=== PATIENT | male | born 1990 | race Caucasian/White ===

== ENCOUNTER 2022-01-06 09:58 | Emergency (ER) | payer BC, OTHER ==
[2022-01-06 10:23] LABS: GLUCOSE, URINE (UA) NEGATIVE (NEGATIVE); KETONES,URINE (UA) >=80 mg/dL (NEGATIVE); LEUKOCYTE ESTERASE, URINE NEGATIVE (NEGATIVE); NITRITE,URINE NEGATIVE (NEGATIVE); OCCULT BLOOD,URINE LARGE (NEGATIVE); PH,URINE 5.5 PH (5.0-7.5); PROTEIN,URINE 30 mg/dL (NEGATIVE); UROBILINOGEN,URINE 1 (NORMAL) E.U./dL (NORMAL)
[2022-01-06 10:27] LABS: BASOPHILS % (AUTO) 0.2 %; EOSINOPHILS % (AUTO) 0.1 %; HCT - HEMATOCRIT 48.5 % (42.0-52.0); LYMPHOCYTES # (AUTO) 0.8 10^3/uL (1.5-3.5); LYMPHOCYTES % (AUTO) 4.9 %; MEAN CORPUSCULAR HEMOGLOBIN 31.7 pg (27.0-31.0); MEAN CORPUSCULAR HGB CONC 35.1 g/dL (32.0-36.0); MEAN CORPUSCULAR VOLUME 90.3 fL (80.0-94.0); MEAN PLATELET VOLUME 10.8 fL (7.4-11.4); MONOCYTES # (AUTO) 0.4 10^3/uL (0.0-1.0); MONOCYTES % (AUTO) 2.3 %; NEUTROPHILS # (AUTO) 14.1 10^3/uL (1.5-6.6); NEUTROPHILS % (AUTO) 92.2 %; PLT - PLATELET COUNT 210 10^3/uL (130-450); RED BLOOD COUNT 5.37 10^6/uL (4.70-6.10); RED CELL DISTRIBUTION WIDTH 11.9 % (12.0-15.0); WHITE BLOOD COUNT 15.3 x10^3/uL (4.8-10.8)
[2022-01-06 10:32] LABS: BILIRUBIN,URINE NEGATIVE (NEGATIVE); CLARITY,URINE HAZY (CLEAR); ICTOTEST,URINE NEGATIVE
[2022-01-06 10:40] LABS: ALBUMIN 5.1 g/dL (3.2-5.5); BILIRUBIN,TOTAL 0.9 mg/dL (0.2-1.0); CALCIUM 9.8 mg/dL (8.5-10.3); CREATININE 1.2 mg/dL (0.6-1.2); POTASSIUM 4.4 mmol/L (3.5-5.0); TOTAL PROTEIN 7.6 g/dL (6.7-8.2)
[2022-01-06 10:41] LABS: BACTERIA,URINE Few /HPF (None Seen); MUCUS,URINE Moderate Strands; SQUAMOUS EPITHELIAL CELL,UR RARE Squamous (<= Few)
--- NOTE | 2022-01-06 12:02 | CT Report ---
PROCEDURE: Abdomen/Pelvis WO INDICATIONS: R flank/LQ abd pain TECHNIQUE: Noncontrast 5 mm thick sections acquired from the diaphragms to the symphysis. 5 mm coronal and sagi ttal reformats were then performed. For radiation dose reduction, the following was used: automated exposure control, adjustment of mA and/or kV according to patient size. COMPARISON: None. FINDINGS: Image quality: Excellent. ABDOMEN: Lung bases: Lung bases are clear. Heart size is normal. Solid organs: Liver is enlarged measuring 18.3 cm with mild steatosis. The spleen is normal in size. Gallbladder is unremarkable Pancreas is normal in contours. No adrenal nodules. Kidneys are norm al in size, without nephrolithiasis. The distal ureter is difficult to visualize in its entirety sec ondary to overlying structures. However, there is a 4 mm calcification, Hounsfield units 400 within t he path of the distal ureter. There is a slight appearance of right hydronephrosis. Peritoneum and bowel: Unenhanced bowel loops demonstrate normal wall thickness and caliber. No free fluid or air. Appendix is normal in size. Nodes and vessels: No retroperitoneal or mesenteric adenopathy by size criteria. Aorta and inferior vena cava are normal in caliber. Miscellaneous: No ventral hernias. PELVIS: Genitourinary: Bladder wall thickness is normal. Miscellaneous: No inguinal hernias or adenopathy. Bones: No suspicious bony lesions. No vertebral body compression fractures. IMPRESSION: Suspected distal right ureteral calculus as described above with slight appearance of right hydroneph rosis. Reviewed by: Rahel Martin MD on 01/06/2022 12:00 PM PDT Approved by: Rahel Martin MD on 01/06/2022 12:00 PM PDT Station ID: [id number]
--- NOTE | 2022-01-06 12:13 | ED Physician Documentation ---
History of Present Illness - Stated complaint Stated Complaint: BACK PAIN - Chief complaint Chief Complaint: Back Pain - History obtained from History obtained from: Patient - Additonal information Additional information: Patient comes to the emergency department from urgent care for chief complaint of right flank pain and lower quadrant pain that started around 6:00 this morning. He states he awakened feeling fine but when he sat down on the toilet the pain suddenly started. He states he was writhing and could not stay still. He felt the pain all the way from his right CVA down into his right testicle. The patient was given some analgesia at the urgent care and told to come here. Patient has no history of kidney stones but does have a strong family history. He still has his appendix. He has not felt sick in any other way. He does admit to vomiting twice when the pain became very intense. No other complaints at this time. He is otherwise healthy. Review of Systems Ten Systems: 10 systems reviewed and negative Constitutional: reports: Reviewed and negative Eyes: reports: Reviewed and negative Ears: reports: Reviewed and negative Nose: reports: Reviewed and negative Throat: reports: Reviewed and negative Cardiac: reports: Reviewed and negative Respiratory: reports: Reviewed and negative GI: reports: Abdominal Pain, Nausea, Vomiting : reports: Reviewed and negative. denies: Dysuria Skin: reports: Reviewed and negative Musculoskeletal: reports: Back pain Neurologic: reports: Reviewed and negative Psychiatric: reports: Reviewed and negative Endocrine: reports: Reviewed and negative Immunocompromised: reports: Reviewed and negative PD PAST MEDICAL HISTORY - Past Medical History Past Medical History: Yes Psych: Depression, Anxiety - Past Surgical History Past Surgical History: No - Present Medications Home Medications: Ambulatory Orders Medication Instructions Recorded Confirmed HYDROcod/ACETAM 5/325 [[place] 5/325] 1 - 2 tablet PO Q6H PRN #14 tablet 01/06/22 Ondansetron Odt [Zofran] 4 mg TL Q6H PRN #10 tablet 01/06/22 buPROPion [Wellbutrin Sr] 100 mg PO BID 01/06/22 01/06/22 - Allergies Allergies/Adverse Reactions: Allergies Allergy/AdvReac Type Severity Reaction Status Date / Time Penicillins Allergy Hives Verified 01/06/22 10:04 - Social History Does the pt smoke?: No Smoking Status: Never smoker PD ED PE NORMAL - Vitals Vital signs reviewed: Yes - General General: Alert and oriented X 3, No acute distress, Well developed/nourished - HEENT HEENT: Atraumatic, PERRL, EOMI, Moist mucous membranes - Neck Neck: Supple, no meningeal sign - Cardiac Cardiac: RRR, No murmur, Strong equal pulses - Respiratory Respiratory: No respiratory distress, Clear bilaterally - Abdomen Abdomen: Soft, Non distended, Other (Mild right lower quadrant tenderness no rebound or guarding) - Back Back: Other (Mild right CVA tenderness) - Derm Derm: Normal color, Warm and dry, No rash - Extremities Extremities: No deformity, No edema - Neuro Neuro: Alert and oriented X 3 - Psych Psych: Normal mood, Normal affect Results - Vitals Vitals: Vital Signs - 24 hr 01/06/22 01/06/22 10:01 11:44 Temperature 36 C L Heart Rate 73 61 Respiratory 18 24 Rate Blood Pressure 123/69 118/66 O2 Saturation 100 98 Oxygen O2 Source Room air - Labs Labs: Laboratory Tests 01/06/22 01/06/22 01/06/22 10:09 10:09 10:15 WBC 15.3 H RBC 5.37 Hgb 17.0 Hct 48.5 MCV 90.3 MCH 31.7 H MCHC 35.1 RDW 11.9 L Plt Count 210 MPV 10.8 Neut # (Auto) 14.1 H Lymph # (Auto) 0.8 L [place] # (Auto) 0.4 Eos # (Auto) 0.0 Baso # (Auto) 0.0 Absolute Nucleated RBC 0.00 Nucleated RBC % 0.0 Sodium 142 Potassium 4.4 Chloride 100 L Carbon Dioxide 29 Anion Gap 13.0 BUN 18 Creatinine 1.2 Estimated GFR (MDRD) 71 L Glucose 142 H Calcium 9.8 Total Bilirubin 0.9 AST 17 ALT 22 Alkaline Phosphatase 67 Total Protein 7.6 Albumin 5.1 Globulin 2.5 Albumin/Globulin Ratio 2.0 Lipase 33 Urine Color DARK YELLOW Urine Clarity HAZY Urine pH 5.5 Ur Specific [place] >=1.030 H Urine Protein 30 H Urine Glucose (UA) NEGATIVE Urine Ketones >=80 H Urine Occult Blood LARGE H Urine Nitrite NEGATIVE Urine Bilirubin NEGATIVE Urine Urobilinogen 1 (NORMAL) Ur Leukocyte Esterase NEGATIVE Urine RBC 11-25 H Urine WBC 4-5 Ur Squamous Epith Cells RARE Squamous Urine Bacteria Few Urine Mucus Moderate Strands Ur Microscopic Review INDICATED Urine Culture Comments NOT INDICATED - Rads (name of study) CT abdomen and pelvis without contrast Radiology: Final report received, EMP read indepedently, See rad report (Suspect right ureteral stone) PD MEDICAL DECISION MAKING - ED course Complexity details: reviewed results, re-evaluated patient, considered differential, d/w patient ED course: The patient was feeling much better after having been treated symptomatically in the urgent care clinic. Urinalysis showed hematuria and CT abdomen and pelvis showed probable right ureteral stone. We have discussed symptomatic management at home, the need for lots of fluids, and the usual indications for return. Departure - Departure Disposition: Home, Self Care Clinical Impression: Kidney stone on right side Condition: Stable Instructions: ED Stone Renal W Colic Prescriptions: HYDROcod/ACETAM 5/325 [[place] 5/325] 1 - 2 tablet PO Q6H PRN #14 tablet PRN Reason: Pain Ondansetron Odt [Zofran] 4 mg TL Q6H PRN #10 tablet PRN Reason: Nausea / Vomiting Comments: Your CT scan shows a stone that is descending through the tube coming from your right kidney. This is nearly to the bladder and hopefully will pass soon. However, sometimes it can take up to a few weeks for stone to pass. Please be sure you drink plenty of water to help encourage the stone to pass into your bladder. Once the stone is in your bladder, it exits very quickly and easily, due to the pressure created by the contraction of the bladder when you urinate. You may take ibuprofen and Tylenol if needed. If you need something stronger, you may take the stronger pain medication which has been prescribed for you and [facility] in [place]. Please take the nausea medication as needed, as well. If you do not notice any improvement after the next couple of weeks, please follow-up with your primary care physician to discuss whether you should see a urologist.
[2022-01-06 12:32] VITALS: BP 118/71
== END 2022-01-06 12:33 | disposition home or self-care (01) ==
LOC: ED 09:58
DX: N13.2 Hydronephrosis with renal and ureteral calculous obstruction (principal)
CPT/HCPCS: 36415; 80053; 81001; 81003; 83690; 85025; 87086; 99284